=== PATIENT | male | born 1960 | race Caucasian/White ===

== ENCOUNTER 2016-10-08 22:09 | Emergency (ER) | payer BC ==
[~2016-10-08] VITALS: Ht 162.6 cm; Wt 80.5 kg
[~2016-10-08 22:09] MED LIST: BENA40TA54 PO; IBUP800T25 PO
[2016-10-08 22:13] VITALS: Ht 162.6 cm; Wt 80.5 kg
--- NOTE | 2016-10-08 22:38 | ERD ---
ER Documentation Chief Complaint Date/Time DATE: 10/08/16 TIME: 22:32 Chief Complaint Pt reports neck pain that has increased since 11am, no fever HPI 56-year-old male who presents to the emergency room for neck pain and chest pain. Patient stated that his right-sided chest pain started around 11:30 a.m. today and it is not provoked. He he also added that his right sided chest pain radiates to right neck, right shoulder, right arm and it is worse in movement. He also complains of limited motion of his neck to the right side due to pain. Denies headache, loss of consciousness, dizziness, blurry vision, changes in vision, photophobia, facial pain, ear pain, throat pain, difficulty swallowing, cough, hemoptysis, abdominal pain, back pain, loss of appetite, nausea, vomiting , hematochezia, diarrhea, constipation, urinary symptoms, bladder and bowel incontinences, extremity weakness, extremity tenderness, numbness or tingling sensation, trauma, difficulty walking, recent travel, recent exposure to illness , recent antibiotic use in the last 3 months, fever, chills. Allergy: No known drug allergies. PMH: Hypertension. Medications: Not taking any medications at this time. Surgery: Denies. Family history: Denies family history of stroke, cardiac before the age of 50. Primary Social History: Works as a construction helper. Occasional drinks alcoholic beverages. Denies smoking, use of illegal drugs. ROS All systems reviewed and are negative except as per history of present illness. Medications Home Meds Active Scripts Ibuprofen* (Motrin*) 800 Mg Tab, 800 MG PO Q6H Y for PAIN AND OR ELEVATED TEMP, #30 TAB Prov:MARTÍN POLANCO F 10/09/16 Diazepam* (Valium*) 5 Mg Tablet, 5 MG PO Q8 Y for ANXIETY, #10 TAB Prov:PASILABAN,JAMAR F 10/09/16 Ibuprofen* (Motrin*) 800 Mg Tab, 800 MG PO Q6, #30 TAB Prov:DAMIEN MCKENZIE NP 05/21/15 Reported Medications Benazepril Hcl* (Lotensin*) 40 Mg Tablet, 40 MG PO DAILY 05/09/13 Allergies Allergies: Coded Allergies: No Known Allergy (Unverified , 11/29/15) PMhx/Soc History of Surgery: No Anesthesia Reaction: No Hx Neurological Disorder: Yes Hx Respiratory Disorders: No Hx Cardiac Disorders: Yes (HTN) Hx Psychiatric Problems: No Hx Miscellaneous Medical Probl: No Hx Alcohol Use: No Hx Substance Use: No Hx Tobacco Use: No Physical Exam Vitals Vital Signs Date Time Temp Pulse Resp B/P Pulse Ox O2 Delivery O2 Flow Rate FiO2 10/08/16 22:13 98.3 90 20 186/86 97 Physical Exam CONSTITUTIONAL: Well-appearing; well-nourished. HEAD: Normocephalic; atraumatic. EYES: Conjunctiva clear, sclera non-icteric, EOM intact. PERRLA. Ears: Hearing intact. EACs clear, TMs non-bulging, non-inflamed, translucent & mobile, ossicles normal appearance, No obstructions, no erythema, no discharges Nose: No obstructions. No polyps. No external lesions. Mucosa non-inflamed. No external lesions, septum and turbinates normal. No rhinorrhea. No discharges. Frontal sinus is non-tender to palpation. Maxillary sinus is non-tender to palpation. MOUTH: Moist mucous membranes, no lesion, no obstructions, no vesicles, no thrush, patent airway Throat: Uvula in midline. Right tonsil is +1 with no erythema, no exudate. Left tonsil is +1 with no erythema, no exudate. Tolerating secretions well. Good gag reflex. Patent airway. Neck: Supple, without lesions, bruits, or adenopathy. No mass. Thyroid non- enlarged and non-tender to palpation. Good and full range of motion of neck with pain to the right side. No obvious swelling/deformity/discoloration. CHEST: Symmetrical chest. Respirations even and not labored. No retractions noted. Right-sided chest pain on range of motion. Chest areas no vesicular lesions/rashes. Back area has no vesicular lesions/rashes. CARDIOVASCULAR: Normal S1, S2. RRR. No murmurs, gallops. RESPIRATORY: Normal chest excursion with respiration; breath sounds clear and equal bilaterally; no wheezes, rhonchi, or rales. Breathing even and unlabored. Speaking in clear, full, and complete sentences w/ ease. ABDOMEN: Normal bowel sounds normal. Soft, round, non-distended, non-guarding, no tenderness, no rebound, no organomegaly, no masses, no pulsating abdominal mass. No hernia. No peritoneal signs. : No CVA tenderness. BACK: Symmetrical shoulder. Spine is midline without deformity, tenderness. No evidence of trauma or deformity. PELVIS: Stable pelvis. No evidence of trauma or deformity. MUSCULOSKELETAL: Normal gait and station. No misalignment, asymmetry, crepitation, defects, tenderness, masses, effusions, decreased range of motion, instability, atrophy or abnormal strength or tone in the head, neck, spine, ribs , pelvis or extremities. Complaints of right shoulder/right arm/right chest pain on range of motion. Mild supraspinatus tenderness to the right upper. No calf tenderness. NEUROVASCULAR: Distal pulses are present. Pedal pulse are present, equal, and normal. Capillary refills are < 2 seconds. NEUROLOGIC: Alert and oriented x4. Speaks full and clear sentences. Cranial Nerves II-XII normal. Sensation to pain, touch, and proprioception normal. Grossly unremarkable. No neurologic deficits. Romberg test is negative. PSYCHOLOGICAL: The patients mood and manner are appropriate. No hallucinations , delusions. Not SI. Not HI. Has the capacity to decide for self SKIN: Normal for age and ethnicity; warm; dry; good turgor; no apparent lesions or exudates. No rashes, hives, discoloration. Intact. Result Diagram: 10/08/16 2305 10/08/16 2305 Results 24 hrs Laboratory Tests Test 10/08/16 23:05 White Blood Count 11.310^3/ul Red Blood Count 5.4510^6/ul Hemoglobin 15.9g/dl Hematocrit 46.2% Mean Corpuscular Volume 84.8fl Mean Corpuscular Hemoglobin 29.2pg Mean Corpuscular Hemoglobin Concent 34.4g/dl Red Cell Distribution Width 12.6% Platelet Count 85855^3/UL Mean Platelet Volume 10.1fl Neutrophils % 71.8% Lymphocytes % 20.3% Monocytes % 6.2% Eosinophils % 1.0% Basophils % 0.4% Nucleated Red Blood Cells % 0.0/100WBC Neutrophils # 8.110^3/ul Lymphocytes # 2.310^3/ul Monocytes # 0.710^3/ul Eosinophils # 0.110^3/ul Basophils # 0.010^3/ul Nucleated Red Blood Cells # 0.010^3/ul Sodium Level 141mmol/L Potassium Level 4.0mmol/L Chloride Level 107mmol/L Carbon Dioxide Level 24mmol/L Anion Gap 14 Blood Urea Nitrogen 19mg/dl Creatinine 1.09mg/dl Glucose Level 106mg/dl Calcium Level 9.0mg/dl Troponin I < 0.012ng/ml Procedures/MDM Examination: Please see physical examination. Disease process, medical treatment was explained to the patient and family member. They verbalized understanding and agreed with the diagnostic tests, medical treatment, and follow-up care. EKG: Radiology: Chest x-ray Impression: Troponin: < 0.012 ng/ml Blood works: Reviewed. Treatment: Toradol IM. Re-evaluation: Denies headache, dizziness, blurry vision, neck pain, chest pain , shoulder pain, back pain, abdominal pain. No nausea and vomiting. No episode of emesis here to emergency department. No neurovascular deficits. No neurological deficits. Romberg test is negative. No pain on eye movement. Extraocular movement of his eyes is within normal limits. Ambulatory with steady gait. Consultation: Differential diagnosis: Acute myocardial infarction versus costochondritis versus musculoskeletal pain chest wall pain. Medical decision makin-year-old male who presents to the emergency room for neck pain and chest pain. Patient stated that his right-sided chest pain started around 11:30 a.m. today and it is not provoked. He he also added that his right sided chest pain radiates to right neck, right shoulder, right arm and it is worse in movement. He also complains of limited motion of his neck to the right side due to pain. Patient's complaint, patient's history about his complaint, my physical findings, diagnostic test results are consistent with my final diagnosis of chest wall pain, and musculoskeletal spasms. Medications prescribed are the following: Motrin. Valium. Patient and family member are made aware of the side effects and adverse reactions of the medications prescribed. Instructed on when to seek emergent and medical attention in case allergic/anaphylactic reactions or severe side effects and or adverse reactions to medications. Patient and family member verbalized understanding. Patient instructed Instructed to follow-up with his PCP in 24-48 hours. Stated that she will see a primary care provider in the next 24 hours. Community resources also provided. Instructed to Call 911 for chest pain, shortness of breath. Advised to come back here in ED as soon as possible for severity of symptoms which includes but not limited to: any new symptoms; shortness of breath/difficulty of breathing; cardiovascular changes; severe gastrointestinal symptoms; signs and symptoms of bleeding and or infection; signs of compartment syndrome/neurovascular changes; neurological changes/deficits. Patient and family member verbalized understanding. Upon discharge, patient is alert and oriented x 4, speaks full and clear sentences, denies pain, has no neurological deficits, has no neurovascular deficits, difficulty of breathing. Breathing even and unlabored. Lung sounds are clear to auscultation. Not in distress. Appears comfortable. Ambulatory with steady gait. Appears satisfied with care provided here in ED. Departure Diagnosis: Primary Impression: Chest wall pain Condition: Good Additional Instructions: Patient instructed Instructed to follow-up with his PCP in 24-48 hours. Stated that she will see a primary care provider in the next 24 hours. Community resources also provided. Instructed to Call 911 for chest pain, shortness of breath. Advised to come back here in ED as soon as possible for severity of symptoms which includes but not limited to: any new symptoms; shortness of breath/difficulty of breathing; cardiovascular changes; severe gastrointestinal symptoms; signs and symptoms of bleeding and or infection; signs of compartment syndrome/neurovascular changes; neurological changes/deficits. Patient and family member verbalized understanding. MARTÍN POLANCO Oct 08, 2016 22:38
[2016-10-08 23:26] LABS: ADD SCAN DIFF NO
[2016-10-08 23:37] LABS: BASOPHILS % 0.4 % (0.0-2.0); EOSINOPHILS # 0.1 10^3/ul (0.0-0.5); HEMATOCRIT 46.2 % (42.0-52.0); HEMOGLOBIN 15.9 g/dl (14.0-18.0); LYMPHOCYTES # 2.3 10^3/ul (0.8-2.9); LYMPHOCYTES % 20.3 % (15.0-51.0); MEAN CORPUSCULAR HEMOGLOBIN 29.2 pg (29.0-33.0); MEAN CORPUSCULAR HGB CONC 34.4 g/dl (32.0-37.0); MEAN CORPUSCULAR VOLUME 84.8 fl (82.0-101.0); MEAN PLATELET VOLUME 10.1 fl (7.4-10.4); MONOCYTE # 0.7 10^3/ul (0.3-0.9); MONOCYTES % 6.2 % (0.0-11.0); NEUTROPHIL # 8.1 10^3/ul (1.6-7.5); NEUTROPHILS % 71.8 % (39.0-77.0); PLATELET COUNT 240 10^3/UL (140-415); RED BLOOD COUNT 5.45 10^6/ul (4.70-6.10); RED CELL DISTRIBUTION WIDTH 12.6 % (11.5-14.5); WHITE BLOOD COUNT 11.3 10^3/ul (4.8-10.8)
[2016-10-08 23:50] LABS: ANION GAP 14 (8-16); BLOOD UREA NITROGEN 19 mg/dl (7-20); CARBON DIOXIDE 24 mmol/L (21-31); CHLORIDE 107 mmol/L (97-110); CREATININE 1.09 mg/dl (0.61-1.24); GLUCOSE 106 mg/dl (70-220); SODIUM 141 mmol/L (135-144)
[2016-10-09 00:01] LABS: TROPONIN-I < 0.012 ng/ml (0.00-0.12)
--- NOTE | 2016-10-09 00:38 | RADRPT ---
PROCEDURE: PA and lateral chest x-ray. CLINICAL INDICATION: Chest pain. TECHNIQUE: PA and lateral views of the chest. COMPARISON: None. FINDINGS: No pulmonary edema or conolidation is identified. The cardiac silhouette is not enlarged. No pleur al effusion is seen. There is no pneumothorax. IMPRESSION: 1. No evidence of acute cardiopulmonary disease. RPTAT: HTAR .Tim Ny MD, MD Date Time Electronically viewed and signed by .Tim Ny MD, on 10/09/2016 00:38 .R/
[2016-10-09] MEDS ORDERED: DIAZ-90 PO (00:55)
[2016-10-09] MEDS ORDERED: IBUP800T25 PO (00:56)
[2016-10-09 01:54] VITALS: BP 159/90; PULSE 75; RESP 18; TEMP 98.6
[2016-10-09] MEDS ORDERED: HYDROCODONE/APAP (5/325) TAB PO ONE (02:00)
== END 2016-10-09 01:55 | disposition home or self-care (01) ==
LOC: FTE 22:09
DX: R07.89 Other chest pain (principal); I10 Essential (primary) hypertension
CPT/HCPCS: 71020; 80048; 84484; 85025; 93005; 99285; Z7610